=== PATIENT | male | born 1985 | race African-American/Black ===

== ENCOUNTER 2022-05-07 02:19 | Emergency (ER) | payer SELFPAY ==
[~2022-05-07] VITALS: Ht 193 cm; Wt 95.3 kg
--- NOTE | 2022-05-07 04:52 | NUR ---
After being triaged, patient was placed back in waiting room due to no beds available in the ER.
--- NOTE | 2022-05-07 06:00 | NUR ---
Patient did not want to be seen anymore by ERRMD. Patient left without being seen by ERMD.
== END 2022-05-07 06:00 | disposition left against medical advice (07) ==
LOC: ER 02:31
DX: Z53.21 Procedure and treatment not carried out due to patient leaving prior to being seen by health care provider (principal)